=== PATIENT | female | born 1995 | race Caucasian/White ===

== ENCOUNTER 2021-08-16 23:34 | Emergency (ER) | payer OTHER ==
[~2021-08-16] VITALS: Ht 162.6 cm; Wt 44.9 kg
[~2021-08-16 23:34] MED LIST: PRENATABS FA T1 EACH PO
[2021-08-17] MEDS ORDERED: ACETAMINOPHEN650 M2 PO (05:18)
== END 2021-08-17 05:28 | disposition home or self-care (01) ==
LOC: ER 23:34
DX: O20.9 Hemorrhage in early pregnancy, unspecified (principal); Z3A.10 10 weeks gestation of pregnancy; R10.2 Pelvic and perineal pain; Z88.6 Allergy status to analgesic agent

== ENCOUNTER 2022-02-11 14:33 | Inpatient (IN) | payer OTHER ==
[~2022-02-11] VITALS: Ht 162.6 cm; Wt 48.5 kg
[~2022-02-11 14:33] MED LIST changes: +ACETAMINOPHEN650 M2 PO
== END 2022-02-13 17:18 | disposition home or self-care (01) | DRG 805 ==
LOC: OB/GYN 14:33 → LDR 14:33 → OB/GYN 22:01
PROVIDERS: ADMIT Specialist; ATTEND Specialist
PROC: 10E0XZZ Delivery of Products of Conception, External Approach (ICD-10-PCS; principal; 2022-02-11)
PROC: 0KQM0ZZ Repair Perineum Muscle, Open Approach (ICD-10-PCS; 2022-02-11)
PROC: 4A1HXCZ Monitoring of Products of Conception, Cardiac Rate, External Approach (ICD-10-PCS; 2022-02-11)
DX: O70.1 Second degree perineal laceration during delivery (principal); O60.14X0 Preterm labor third trimester with preterm delivery third trimester, not applicable or unspecified; Z37.0 Single live birth; Z3A.36 36 weeks gestation of pregnancy; Z20.822 Contact with and (suspected) exposure to COVID-19